=== PATIENT | female | born 1995 | race Caucasian/White ===

== ENCOUNTER 2022-10-16 15:09 | Inpatient (IN) ==
[2022-10-16 15:55] LABS: Appearance Urine Clear (Clear); Bilirubin Urine Negative (Negative); Blood Urine Negative (Negative); Color Urine Yellow; Glucose Urine UA Negative (Negative); Ketones Urine Trace (Negative); Leukocyte Esterase Urine Negative (Negative); Nitrite Urine Negative (Negative); Protein Urine Negative (Negative); Specific Gravity Urine 1.024 (1.000-1.030); Urobilinogen Urine Negative (Negative); pH Urine 5.5 (4.5-7.5)
[2022-10-16 15:58] LABS: Basophils # (auto) 0.05 K/uL (0-0.2); Basophils % (auto) 0.6 %; Eosinophils # (auto) 0.08 K/uL (0-0.50); Eosinophils % (auto) 0.9 %; Hematocrit (blood only) 44.8 % (34.1-44.9); Hemoglobin 15.1 g/dl (12.0-16.0); Immature Granulocytes # (auto) 0.02 K/uL (0.00-0.02); Immature Granulocytes % (auto) 0.2 %; Lymphocytes # (auto) 2.78 K/uL (1.2-3.4); Lymphocytes % (auto) 32.7 %; Mean Corpuscular Hemoglobin 28.1 pg (25.0-34.0); Mean Corpuscular Hgb Conc 33.7 g/dL (32.0-36.0); Mean Corpuscular Volume 83.4 fL (80.0-100.0); Mean Platelet Volume 10.8 fL (9.4-12.3); Monocytes # (auto) 0.55 K/uL (0.24-0.82); Monocytes % (auto) 6.5 %; Neutrophils # (auto) 5.02 K/uL (1.4-6.5); Neutrophils % (auto) 59.1 %; Platelet Count 351 K/uL (130-400); RDW Coefficient of Variation 12.8 % (11.5-14.5); RDW Standard Deviation 38.7 fL (36.4-46.3); Red Blood Count 5.37 M/uL (3.93-5.22)
[2022-10-16 16:19] LABS: Albumin Globulin Ratio 1.3 (0.9-2); Albumin Level 4.4 gm/dl (3.4-5.0); Bilirubin,Total 0.3 mg/dl (0.2-1.0); Calcium 8.9 mg/dl (8.5-10.1); Creatinine Clr Calc Pharmacy 153.5 ml/min; Est GFR (Non-African American) 123.4 ml/min; Globulin 3.4 gm/dl (2.5-4.0); Total Protein 7.8 gm/dl (6.0-8.3)
[2022-10-16 16:21] LABS: Acetaminophen < 3 ug/ml (10-30); Salicylate < 3.0 mg/dl (3.0-30)
--- NOTE | 2022-10-16 16:26 | Emergency Department Note ---
Impression & Plan Suicidal ideation, Anxiety and depression ED Provider Note NAME: JHONATAN LANCE AGE: 27 SEX: F ARRIVES VIA: Walk-In INFORMANT: Patient ED PROVIDER(S): Jefferson Finch MD CHIEF COMPLAINT: Suicidal ideation. PLAN: Disposition: Inpatient psychiatric treatment, [address] [place] [address] MEDICAL DECISION MAKING: The patient is a pleasant 27-year-old woman with a past medical history of autism spectrum disorder, anxiety/depression who presents to the emergency department via walk-in for evaluation of suicidal ideation in the setting of having recent break-up with her boyfriend who she lives with and there is still somewhat in the same home intermittently. She reports that she does not feel safe at home at this time as she feels her symptoms are worse and she may act ou t on her suicidal ideation. She denies auditory hallucinations. She does feel hopeless at times. She denies any recent attempts to kill her self but did cut herself superficially a week or so ago on the left forearm which had left no ashley. She denies any recent fevers, chills, cough congestion, GI or symptoms. She is interested in inpatient psychiatric treatment. Of note, the patient did arrive to emergency department during time of high volume, acuity and prolonged emergency department waiting times. Critical pathways initiated from triage. On my evaluation the patient alcoholic appearing but no acute distress, afebrile stable vital signs. She endorses suicidal ideation per HPI. WBC, H/H and platelets within normal limits. Chemistry without metabolic acidosis. Electrolytes and LFTs unremarkable. UA without evidence of infection. Drug screen is positive for marijuana and otherwise unremarkable. COVID-19 RNA, JANN test was negative. Patient medically cleared. Referral made to [facility] and patient was accepted under 201 for inpatient psychiatric treatment. Triage Nursing notes reviewed and agree them. Prior medical records reviewed Vital Signs: reviewed Differential diagnosis: Mood disorder, infection, hypoglycemia, electrolyte abnormalities, cardiac sources, intracerebral event, toxicologic, trauma, neurologic, as well as other pathologies. ER treatment provided: See below. Laboratory studies: See below HPI: The patient is a pleasant 27-year-old woman with a past medical history of autism spectrum disorder, anxiety/depression who presents to the emergency department via walk-in for evaluation of suicidal ideation in the setting of having recent break-up with her boyfriend who she lives with and there is still somewhat in the same home intermittently. She reports that she does not feel safe at home at this time as she feels her symptoms are worse and she may act out on her suicidal ideation. She denies auditory hallucinations. She does feel hopeless at times. She denies any recent attempts to kill her self but did cut herself superficially a week or so ago on the left forearm which had left no ashley. She denies any recent fevers, chills, cough congestion, GI or symptoms. She is interested in inpatient psychiatric treatment. ROS: See above HPI for pertinent positives & negatives. A total of 10 systems reviewed and were otherwise negative. VITALS:See Below PHYSICAL EXAMINATION: GENERAL: Awake, alert, Melancholy-appearing, in no distress HENT: Normocephalic, atraumatic. Oropharynx unremarkable. EYES: Normal conjunctiva. Sclera non-icteric. NECK: Supple. No nuchal rigidity. FROM. No JVD. RESPIRATORY: Clear to auscultation. CARDIAC: Regular rate, normal rhythm. Extremities warm and well perfused. Pulses equal. ABDOMEN: Soft, non-distended. No tenderness to palpation. No rebound or guarding. No masses. RECTAL: Deferred. MUSCULOSKELETAL: Chest examination reveals no tenderness. The back is symmetr ical on inspection without obvious abnormality. There is no CVA tenderness to palpation. No joint edema. LOWER EXTREMITIES: Calves are equal size bilaterally and non-tender. No edema. No discoloration. NEURO: Normal sensorium. No sensory or motor deficits noted. SKIN: No rash or jaundice noted. PSYCH: Endorses depression, hopelessness, suicidal ideation without plan. Denies auditory hallucinations. Jefferson Finch MD Past Med/Surg History Medical History Bipolar disorder Depression Obesity Urge incontinence related to IUD - resolved when removed Surgical History History of ankle surgery x 2, January-Apr 2021 Family History Aunt Breast cancer Other Depression Social History Smoking Status: Never smoker Tobacco Type: Cigarettes Age Started Using Tobacco: 21; Age Quit Using Tobacco: 25; Cigarettes Per Day: 1-2; Second Hand Exposure: No; Hx Alcohol Use: Yes Hx Substance Use: No Preferred Language: Cypriot Communication Ability: Effective Visual Impairment: No Limitations Hearing Ability: Normal Digital Engineer Required: No Beliefs That Will Affect Care: None marital status: Single Current Living Situation: Significant Other current occupational status: employed current occupation: [employer] Feels Safe at Home: Yes and Hesitant to Answer Childhood Exposure to Second-Hand Smoke: No Diet Comment: regular Dental Care, Regularly: Yes Physical Activity Frequency: Other Seatbelt Use: always Sunscreen Use: Yes Gender Identity: Female Assistive Devices: None Allergies Allergies Allergy/AdvReac Type Severity Reaction Status Date / Time No Known Allergies Allergy Unverified 08/03/22 09:31 Home Meds Previous Rx's Medication Instructions Recorded aripiprazole 10 mg tablet (Abilify) 10 mg PO DAILY #90 tabs 08/05/22 citalopram 40 mg tablet 40 mg PO DAILY #30 tabs 08/06/22 cetirizine 10 mg capsule (Zyrtec) 10 mg PO DAILY PRN allergy 08/10/22 symptoms #30 caps Xulane 150 mcg-35 mcg/24 hr 1 patch transdermal Q7D #3 ea 09/10/22 transdermal patch (norelgestromin-ethin.estradiol) medroxyprogesterone 10 mg tablet 10 mg PO DAILY #10 tabs 10/08/22 (Provera) Results & Data (ED) Vital Signs Vital Signs - 24 hr 10/16/22 15:22 10/16/22 17:51 Temperature 36.4 C L Temperature Source Temporal Artery Scan Pulse Rate 106 H 68 Respiratory Rate 18 18 Respiratory Effort / Characteristics Non-Labored Spontaneous Respiratory Depth Normal Respiratory Pattern Regular Blood Pressure 147/85 H 145/88 H Blood Pressure Mean 105 Blood Pressure Position Sitting Pulse Oximetry 98 98 Oxygen Delivery Method Room Air Room Air Sepsis Recent Fever Within 48 Hours No Sepsis New/Unexplained Change in Mental Status No Sepsis Action Taken by Nursing No Action Required Laboratory Data Attestation: I reviewed the patient's lab results. 10/16/22 15:40 10/16/22 15:40 Lab Results 10/16/22 10/16/22 10/16/22 Range/Units 15:31 15:31 15:31 WBC (4.8-10.8) K/ul RBC (3.93-5.22) M/uL Hgb (12.0-16.0) g/dl Hct (34.1-44.9) % MCV (80.0-100.0) fL MCH (25.0-34.0) pg MCHC (32.0-36.0) g/dL RDW Std Deviation (36.4-46.3) fL RDW Coeff of Amari (11.5-14.5) % Plt Count (130-400) K/uL MPV (9.4-12.3) fL Immature Gran % (Auto) % Neut % (Auto) % Lymph % (Auto) % [place] % (Auto) % Eos % (Auto) % Baso % (Auto) % Neut # (Auto) (1.4-6.5) K/uL Lymph # (Auto) (1.2-3.4) K/uL [place] # (Auto) (0.24-0.82) K/uL Eos # (Auto) (0-0.50) K/uL Baso # (Auto) (0-0.2) K/uL Immature Gran # (Auto) (0.00-0.02) K/uL Sodium (136-145) mmol/L Potassium (3.5-5.1) mmol/L Chloride (98-107) mmol/L Carbon Dioxide (21-32) mmol/L Anion Gap (3-11) BUN (6-23) mg/dl Creatinine (0.6-1.2) mg/dl Est Cr Clr Drug Dosing ml/min Est GFR ( Amer) ml/min Est GFR (Non-Af Amer) ml/min BUN/Creatinine Ratio (10-20) Glucose (70-99(Fasting)) mg/dl Calcium (8.5-10.1) mg/dl Total Bilirubin (0.2-1.0) mg/dl AST (13-39) U/L ALT (7-52) U/L Alkaline Phosphatase (34-104) U/L Total Protein (6.0-8.3) gm/dl Albumin (3.4-5.0) gm/dl Globulin (2.5-4.0) gm/dl Albumin/Globulin Ratio (0.9-2) TSH (0.300-4.500) uIu/ml HCG, Qual (Negative) Urine Color Yellow Urine Appearance Clear (Clear) Urine pH 5.5 (4.5-7.5) Ur Specific [place] 1.024 (1.000-1.030) Urine Protein Negative (Negative) Urine Glucose (UA) Negative (Negative) Urine Ketones Trace H (Negative) Urine Blood Negative (Negative) Urine Nitrite Negative (Negative) Urine Bilirubin Negative (Negative) Urine Urobilinogen Negative (Negative) Ur Leukocyte Esterase Negative (Negative) Salicylates (3.0-30) mg/dl Urine Opiates Screen Neg (Neg) Ur Methadone, Qual Neg (Neg) Acetaminophen (10-30) ug/ml Urine Barbiturates Neg (Neg) Ur Phencyclidine (PCP) Neg (Neg) U Amphetamin/Meth Scrn Neg (Neg) MDMA (Ecstasy) Screen Neg (Neg) U Benzodiazepines Scrn Neg (Neg) Ur Cocaine Metabolite Neg (Neg) U Marijuana (THC) Screen Pos H (Neg) Ethyl Alcohol mg/dL (<10.0) mg/dl SARS-CoV-2, RNA, NAAT NEGATIVE (NEGATIVE) 10/16/22 10/16/22 10/16/22 Range/Units 15:40 15:40 15:40 WBC 8.50 (4.8-10.8) K/ul RBC 5.37 H (3.93-5.22) M/uL Hgb 15.1 (12.0-16.0) g/dl Hct 44.8 (34.1-44.9) % MCV 83.4 (80.0-100.0) fL MCH 28.1 (25.0-34.0) pg MCHC 33.7 (32.0-36.0) g/dL RDW Std Deviation 38.7 (36.4-46.3) fL RDW Coeff of Amari 12.8 (11.5-14.5) % Plt Count 351 (130-400) K/uL MPV 10.8 (9.4-12.3) fL Immature Gran % (Auto) 0.2 % Neut % (Auto) 59.1 % Lymph % (Auto) 32.7 % [place] % (Auto) 6.5 % Eos % (Auto) 0.9 % Baso % (Auto) 0.6 % Neut # (Auto) 5.02 (1.4-6.5) K/uL Lymph # (Auto) 2.78 (1.2-3.4) K/uL [place] # (Auto) 0.55 (0.24-0.82) K/uL Eos # (Auto) 0.08 (0-0.50) K/uL Baso # (Auto) 0.05 (0-0.2) K/uL Immature Gran # (Auto) 0.02 (0.00-0.02) K/uL Sodium 137 (136-145) mmol/L Potassium 4.0 (3.5-5.1) mmol/L Chloride 103 (98-107) mmol/L Carbon Dioxide 27 (21-32) mmol/L Anion Gap 7 (3-11) BUN 13 (6-23) mg/dl Creatinine 0.65 (0.6-1.2) mg/dl Est Cr Clr Drug Dosing 153.5 ml/min Est GFR ( Amer) 143.0 ml/min Est GFR (Non-Af Amer) 123.4 ml/min BUN/Creatinine Ratio 20.0 (10-20) Glucose 96 (70-99(Fasting)) mg/dl Calcium 8.9 (8.5-10.1) mg/dl Total Bilirubin 0.3 (0.2-1.0) mg/dl AST 13 (13-39) U/L ALT 12 (7-52) U/L Alkaline Phosphatase 72 (34-104) U/L Total Protein 7.8 (6.0-8.3) gm/dl Albumin 4.4 (3.4-5.0) gm/dl Globulin 3.4 (2.5-4.0) gm/dl Albumin/Globulin Ratio 1.3 (0.9-2) TSH 3.422 (0.300-4.500) uIu/ml HCG, Qual (Negative) Urine Color Urine Appearance (Clear) Urine pH (4.5-7.5) Ur Specific [place] (1.000-1.030) Urine Protein (Negative) Urine Glucose (UA) (Negative) Urine Ketones (Negative) Urine Blood (Negative) Urine Nitrite (Negative) Urine Bilirubin (Negative) Urine Urobilinogen (Negative) Ur Leukocyte Esterase (Negative) Salicylates (3.0-30) mg/dl Urine Opiates Screen (Neg) Ur Methadone, Qual (Neg) Acetaminophen (10-30) ug/ml Urine Barbiturates (Neg) Ur Phencyclidine (PCP) (Neg) U Amphetamin/Meth Scrn (Neg) MDMA (Ecstasy) Screen (Neg) U Benzodiazepines Scrn (Neg) Ur Cocaine Metabolite (Neg) U Marijuana (THC) Screen (Neg) Ethyl Alcohol mg/dL (<10.0) mg/dl SARS-CoV-2, RNA, NAAT (NEGATIVE) 10/16/22 10/16/22 10/16/22 Range/Units 15:40 15:40 15:40 WBC (4.8-10.8) K/ul RBC (3.93-5.22) M/uL Hgb (12.0-16.0) g/dl Hct (34.1-44.9) % MCV (80.0-100.0) fL MCH (25.0-34.0) pg MCHC (32.0-36.0) g/dL RDW Std Deviation (36.4-46.3) fL RDW Coeff of Amari (11.5-14.5) % Plt Count (130-400) K/uL MPV (9.4-12.3) fL Immature Gran % (Auto) % Neut % (Auto) % Lymph % (Auto) % [place] % (Auto) % Eos % (Auto) % Baso % (Auto) % Neut # (Auto) (1.4-6.5) K/uL Lymph # (Auto) (1.2-3.4) K/uL [place] # (Auto) (0.24-0.82) K/uL Eos # (Auto) (0-0.50) K/uL Baso # (Auto) (0-0.2) K/uL Immature Gran # (Auto) (0.00-0.02) K/uL Sodium (136-145) mmol/L Potassium (3.5-5.1) mmol/L Chloride (98-107) mmol/L Carbon Dioxide (21-32) mmol/L Anion Gap (3-11) BUN (6-23) mg/dl Creatinine (0.6-1.2) mg/dl Est Cr Clr Drug Dosing ml/min Est GFR ( Amer) ml/min Est GFR (Non-Af Amer) ml/min BUN/Creatinine Ratio (10-20) Glucose (70-99(Fasting)) mg/dl Calcium (8.5-10.1) mg/dl Total Bilirubin (0.2-1.0) mg/dl AST (13-39) U/L ALT (7-52) U/L Alkaline Phosphatase (34-104) U/L Total Protein (6.0-8.3) gm/dl Albumin (3.4-5.0) gm/dl Globulin (2.5-4.0) gm/dl Albumin/Globulin Ratio (0.9-2) TSH (0.300-4.500) uIu/ml HCG, Qual Negative (Negative) Urine Color Urine Appearance (Clear) Urine pH (4.5-7.5) Ur Specific [place] (1.000-1.030) Urine Protein (Negative) Urine Glucose (UA) (Negative) Urine Ketones (Negative) Urine Blood (Negative) Urine Nitrite (Negative) Urine Bilirubin (Negative) Urine Urobilinogen (Negative) Ur Leukocyte Esterase (Negative) Salicylates < 3.0 L (3.0-30) mg/dl Urine Opiates Screen (Neg) Ur Methadone, Qual (Neg) Acetaminophen < 3 L (10-30) ug/ml Urine Barbiturates (Neg) Ur Phencyclidine (PCP) (Neg) U Amphetamin/Meth Scrn (Neg) MDMA (Ecstasy) Screen (Neg) U Benzodiazepines Scrn (Neg) Ur Cocaine Metabolite (Neg) U Marijuana (THC) Screen (Neg) Ethyl Alcohol mg/dL < 10.0 (<10.0) mg/dl SARS-CoV-2, RNA, NAAT (NEGATIVE) Administered Medications Discontinued Medications Aripiprazole (Aripiprazole 10 Mg Tab) 10 mg PO ONE ONE Stop: 10/16/22 21:01 Last Admin: 10/16/22 20:48 Dose: 10 mg Documented By: RDS Discharge Plan Visit Data Chief Complaint: Mental Health Evaluation Stated Complaint: MENTAL HEALTH EVALUATION ED Provider: Jefferson Finch Discharge Problem: Suicidal ideation, Anxiety and depression Patient Disposition: Admitted As Inpatient Discharge Instructions Interventions: ED Discharge Assessment Last Done: 10/16/22 17:51
[2022-10-16 16:36] LABS: Pregnancy Test, Serum Negative (Negative)
[2022-10-16 16:45] LABS: Amphetamines+Metham, Urine Neg (Neg); Barbiturates, Urine Neg (Neg); Benzodiazepine, Urine Neg (Neg); Cocaine, Urine Neg (Neg); MDMA (Ecstacy), Urine Neg (Neg); Methadone, Urine Neg (Neg); Opiate, Urine Neg (Neg); Phencyclidine, Urine Neg (Neg)
[2022-10-16] MEDS ORDERED: MAGNESIUM HYDROXIDE SUSP 30 ML UDC PO PRN (18:01)
[2022-10-16] MEDS ORDERED: ACETAMINOPHEN 325 MG TAB PO PRN (18:01)
[2022-10-16] MEDS ORDERED: SODIUM CHLORIDE 0.65% NA SOLN 45 ML (OCEAN) PRN (18:01)
[2022-10-16] MEDS ORDERED: BISMUTH SUBSALICYLATE LIQD 236 ML PO PRN (18:01)
[2022-10-16] MEDS ORDERED: ALUMINUM/MAGNESIUM SUSP 30 ML UDC PO PRN (18:01)
[2022-10-16] MEDS ORDERED: hydrOXYzine HCl 25 MG TAB PO PRN ×2 (18:01)
[2022-10-16] MEDS ORDERED: ARIPiprazole 10 MG TAB PO ONE (21:00)
--- NOTE | 2022-10-17 08:31 | History & Physical ---
Date of Service October 17, 2022 Impression / Recommendations Impression Vivian is a 27 year old with a history of BPAD type II, MDD, ASD presenting for worsening suicidal ideation with plan of cutting herself after recent PTSD trigger and just started on Provera three days ago for intermittent menstruation. Diagnostically consistent with unspecified depression, most likely major depressive disorder vs PTSD acute exacerbation. Based on her description of mood changes (elevated mood lasting only a few hours and never with lack of sleep) as well as self-harm more consistent with borderline personality disorder/cluster B traits rather than bipolar affective disorder. The patient is deemed unstable and requires psychiatric hospitalization for diagnostic clarification, safety and stabilization, medication management and development of further coping skills. She likes her medications and doesn't want to make any changes. Discussed medication treatment options in detail. Discussed risks, benefits and alternatives. Patient would like to continue with and consented to Celexa for depression, PTSD, anxiety and Abilify for self-harm urges/depression augmentation. Reviewed side effects including but not limited to: GI, SANTOS, sexual side effects, and counseled on black box warning of potential for emergence of or increased SI and need to let staff know should this occur or should they feel unsafe. Also discussed importance of seeking emergency care following discharge if this side effect occurs in the future with Celexa. Reviewed side effects including but not limited to: movement (TD, NMS), cardiac (QTc prolongation), and metabolic (stroke, insulin resistance) and necessity for fasting lipid and glucose labwork and AIMS done with score of 0. (1) Suicidal ideation: (2) Major depressive disorder, recurrent episode with anxious distress: (3) Post traumatic stress disorder (PTSD): (4) Self-harming behavior: Plan 10/17/2022: The patient was admitted to the [facility] ([facility] unit) on q15 min checks (behavioral with suicide precautions) for safety. The patient will participate in group, recreational, and milieu therapies and will be offered additional individual and family sessions as clinically appropriate. -Continue abilify 10mg qd and Celexa 40mg qd -fasting lipid panel and glucose tomorrow morning Inventory Assets Strengths: supportive relationships, willing to get treatment Needs: safety and stabilization, medication adjustment, additional coping skills, increased outpatient services Suicide Risk Level Suicide Risk Level: High-Moderate (q15 min suicide checks) (depression with SI with plan prior to admission but feels safe in the hospital, able to safety contract and agrees to let nursing/staff know should they develop plan, intent or feel unable to remain safe.) Suicide Risk Level Comments: Risk Factors Assessment : Yes Do You Have Access To A Gun?: No (roommate has concealed carry, but always on him) Mental Health Diagnoses: Yes Previous Attempt: Yes Family History of Suicide: Yes (possibly in [facility]) Previous Psychiatric Hospitalization: Yes Protective Factors Assessment Employed: Yes ([employer]) Supportive Family: Yes Good Rapport with Provider: Yes Psychiatric History Identifying Data VIVIAN LANCE is a 27-year-old F who currently lives in [place] with her ex-boyfriend, has a history of BPAD type II, MDD, ASD with learning disabilities, and was admitted on 10/16/22 18:01 on a 201 voluntary commitment for SI with plan of cutting herself to bleed to . Chief Complaint "I'm sorry I know I shouldn't be crying". History of Present Illness Vivian presents for psychiatric admission for worsening depression and SI with plan of cutting herself in the context of multiple psychosocial stressors including seeing her late fiance's brother last week, recent breakup but still living together which has lead to more arguments, not being able to keep her apartment clean and financial strain. Endorses multiple depression and anxiety symptoms including increased sleep. Appetite is stable. She is currently prescribed Celexa 40mg qd (dose increased about 1 year ago) which she finds helpful and then Abilify 10mg was started in 2020 and she feels this "works wonders" and "keeps me out of that bad side of me" from her primary care provider Dr. Méndez. Reviewed and confirmed further symptoms as documented by ED psych CM in note from 10/16/2022: "Patient reports depressive symptoms as crying, self- devaluation, feelings of helpless/hopelessness, loss of daily functioning, lack of motivation, anhedonia, varying appetite, decrease in ADL's and sleep. Patient reports manic symptoms as elevated/expansive mood and racing thoughts. Patient describes mild anxiety on most days with symptoms of chest discomfort, trembling and stuttering when she talks with occasional panic attacks. Patient admits to thoughts of self-harm, but has not cut herself for a couple of weeks. Patient reports she usually uses a razor and began self-harming at age 20. Patient reports trauma of losing a boyfriend "who in bed beside me," parents , hx of homelessness and being bullied in high school. Patient does not use alcohol or tobacco, but is prescribed medical marijuana and smokes a few times a month. Patient lives in a local apartment, formerly living with her former boyfriend who now just comes and goes from the apartment. Patient especially enjoys, but has lost interest in creative activities, listening to music, playing video games and cuddling with her cat." Psychiatric ROS notable for periods of elevated mood that will last "a couple hours" but never longer. No current nor history of symptoms of ramón, psychosis, OCD nor eating disorder. Frequent self-harm. History of PTSD from of her fiancee with ongoing challenges committing to relationships. Past Psychiatric History Current Psychiatric Diagnosis: Bipolar Type 2, MDD, ADHD and Autism (didn't become verbal until age 6 Outpatient Services: none currently, history of [facility] about 2 years ago Previous Psych Admissions: [facility] in 2020 for depression Do You Have Access To A Gun?: No (roommate has concealed carry, but always on him) History of Previous Suicide Attempt: Yes (~5 prior, last attempt was a few weeks ago) Describe Attempts in the Past: via cutting with a razor-never required stitches Past Medication Trials: zoloft-didn't work, can't recall any other trials Past Head Trauma/Neuro History History of Concussion/Seizure: No Allergies Allergy/AdvReac Type Severity Reaction Status Date / Time No Known Allergies Allergy Verified 10/17/22 12:09 Home Medications Medication Instructions Recorded Confirmed Type aripiprazole 10 mg tablet (Abilify) 10 mg PO DAILY #90 tabs 08/05/22 10/16/22 Rx citalopram 40 mg tablet 40 mg PO DAILY #30 tabs 08/06/22 10/16/22 Rx cetirizine 10 mg capsule (Zyrtec) 10 mg PO DAILY PRN allergy 08/10/22 10/16/22 Rx symptoms #30 caps Xulane 150 mcg-35 mcg/24 hr 1 patch transdermal Q7D #3 ea 09/10/22 10/16/22 Rx transdermal patch (norelgestromin-ethin.estradiol) medroxyprogesterone 10 mg tablet 10 mg PO DAILY #10 tabs 10/08/22 10/16/22 Rx (Provera) Family History Family History of: Depression (mom), Other-List under Comment (ASD in mom) and Bipolar (dad) Alcohol History Hx of Alcohol Use Over the Past 12 Months: No AUDIT Total Score: 0 Smoking Use Have You Smoked or Used Tobacco Products in the Last 30 Days: No Smoking Status: Never smoker Substance History Hx of Prescription Med Misuse Over the Past 12 Months: No Hx of Over the Counter Med Misuse Over the Past 12 Months: No Hx of Inhalent Misuse Over the Past 12 Months: No Hx of Organic Substance Use Over the Past 12 Months: Yes (Prescribed medical marijuana) Hx of Illegal Substances/Street Drug Use Over Past 12 Months: No Problems as a Result of Past Substance Use: None Identified Uses medical marijuana via vape pen about once a week or once a month which she finds helps her anxiety. Doesn't like the aftertaste but no other negative effects. Personal History Living Arrangements: Apartment Childhood: Parents . Has sister. She doesn't talk to her Dad or sister but has a good relationship with her mom. Highest Grade Completed: G.E.D. Employment Status: Programs Assistant Employed ([employer]) Marital Status: Single Beliefs That Will Affect Care: None Current Legal Problems: No Hx Legal Problems: No Hx Traumatic Life Events: Yes (fiancee overdosed or by suicide 6 years ago) Patient History Medical History Bipolar disorder Depression Obesity Urge incontinence related to IUD - resolved when removed Surgical History History of ankle surgery x 2, January-Apr 2021 Family History Aunt Breast cancer Other Depression Social History Smoking Status: Never smoker Tobacco Type: Cigarettes Age Started Using Tobacco: 21; Age Quit Using Tobacco: 25; Cigarettes Per Day: 1-2; Second Hand Exposure: No; Hx Alcohol Use: Yes Hx Substance Use: No Preferred Language: Croatian Communication Ability: Effective Visual Impairment: No Limitations Hearing Ability: Normal Head Baker Required: No Beliefs That Will Affect Care: None marital status: Single Current Living Situation: Significant Other current occupational status: employed current occupation: [employer] Feels Safe at Home: Yes and Hesitant to Answer Childhood Exposure to Second-Hand Smoke: No Diet Comment: regular Dental Care, Regularly: Yes Physical Activity Frequency: Other Seatbelt Use: always Sunscreen Use: Yes Gender Identity: Female Assistive Devices: None Review of Systems Review of Systems: All systems reviewed & are unremarkable except as noted in HPI & below Physical Exam Psychiatric: Orientation: alert and oriented x 3 Apperance: appropriately dressed and + disheveled (slightly malodorous) Eye Contact: + fair eye contact Motor Behavior: no abnormal motor movements Speech: normal rate/rhythm/volume of speech Affect: + depressed affect, + anxious affect and + tearful affect Mood: + depressed mood and + anxious mood Thought P rocess: goal directed thought process and + concrete thought process Thought Content: reality based without delusions Suicidal Thoughts: denies suicidal plan (none for here in the hospital) and denies suicidal intent; + reports suicidal thoughts (intermittent SI) Homicidal Thoughts: denies homicidal thoughts Hallucinations: no auditory hallucinations and no visual hallucinations Cognition: recent memory grossly intact, remote memory grossly intact, attention grossly intact and language grossly intact Estimated Intelligence: consistent with education level Insight: + limited insight Judgement: + limited judgement Vital Signs (Past 24 Hours): Last Vital Signs Temp 36.5 C 10/17/22 06:42 Pulse 94 H 10/17/22 06:43 Resp 16 10/17/22 06:42 BP 115/82 10/17/22 06:43 Pulse Ox 95 10/16/22 18:07 O2 Del Method 10/16/22 18:07 Exam Statement: A physical exam was performed in the ED by Dr. Finch for the purposes of medical clearance. I accept that physical as correct and adequate for the purposes of the inpatient physical exam. Results & Data ([facility]) Laboratory Results Laboratory Results - last 24 hr 10/16/22 10/16/22 10/16/22 15:31 15:31 15:31 WBC RBC Hgb Hct MCV MCH MCHC RDW Std Deviation RDW Coeff of Amari Plt Count MPV Immature Gran % (Auto) Neut % (Auto) Lymph % (Auto) [place] % (Auto) Eos % (Auto) Baso % (Auto) Neut # (Auto) Lymph # (Auto) [place] # (Auto) Eos # (Auto) Baso # (Auto) Immature Gran # (Auto) Sodium Potassium Chloride Carbon Dioxide Anion Gap BUN Creatinine Est Cr Clr Drug Dosing Est GFR ( Amer) Est GFR (Non-Af Amer) BUN/Creatinine Ratio Glucose Calcium Total Bilirubin AST ALT Alkaline Phosphatase Total Protein Albumin Globulin Albumin/Globulin Ratio TSH HCG, Qual Urine Color Yellow Urine Appearance Clear Urine pH 5.5 Ur Specific [place] 1.024 Urine Protein Negative Urine Glucose (UA) Negative Urine Ketones Trace H Urine Blood Negative Urine Nitrite Negative Urine Bilirubin Negative Urine Urobilinogen Negative Ur Leukocyte Esterase Negative Salicylates Urine Opiates Screen Neg Ur Methadone, Qual Neg Acetaminophen Urine Barbiturates Neg Ur Phencyclidine (PCP) Neg U Amphetamin/Meth Scrn Neg MDMA (Ecstasy) Screen Neg U Benzodiazepines Scrn Neg Ur Cocaine Metabolite Neg U Marijuana (THC) Screen Pos H U Marijuana THC Carboxy Drug Screen Comment Ethyl Alcohol mg/dL SARS-CoV-2, RNA, NAAT NEGATIVE 10/16/22 10/16/22 10/16/22 15:31 15:40 15:40 WBC 8.50 RBC 5.37 H Hgb 15.1 Hct 44.8 MCV 83.4 MCH 28.1 MCHC 33.7 RDW Std Deviation 38.7 RDW Coeff of Amari 12.8 Plt Count 351 MPV 10.8 Immature Gran % (Auto) 0.2 Neut % (Auto) 59.1 Lymph % (Auto) 32.7 [place] % (Auto) 6.5 Eos % (Auto) 0.9 Baso % (Auto) 0.6 Neut # (Auto) 5.02 Lymph # (Auto) 2.78 [place] # (Auto) 0.55 Eos # (Auto) 0.08 Baso # (Auto) 0.05 Immature Gran # (Auto) 0.02 Sodium 137 Potassium 4.0 Chloride 103 Carbon Dioxide 27 Anion Gap 7 BUN 13 Creatinine 0.65 Est Cr Clr Drug Dosing 153.5 Est GFR ( Amer) 143.0 Est GFR (Non-Af Amer) 123.4 BUN/Creatinine Ratio 20.0 Glucose 96 Calcium 8.9 Total Bilirubin 0.3 AST 13 ALT 12 Alkaline Phosphatase 72 Total Protein 7.8 Albumin 4.4 Globulin 3.4 Albumin/Globulin Ratio 1.3 TSH HCG, Qual Urine Color Urine Appearance Urine pH Ur Specific [place] Urine Protein Urine Glucose (UA) Urine Ketones Urine Blood Urine Nitrite Urine Bilirubin Urine Urobilinogen Ur Leukocyte Esterase Salicylates Urine Opiates Screen Ur Methadone, Qual Acetaminophen Urine Barbiturates Ur Phencyclidine (PCP) U Amphetamin/Meth Scrn MDMA (Ecstasy) Screen U Benzodiazepines Scrn Ur Cocaine Metabolite U Marijuana (THC) Screen U Marijuana THC Carboxy Pending Drug Screen Comment Pending Ethyl Alcohol mg/dL SARS-CoV-2, RNA, NAAT 10/16/22 10/16/22 10/16/22 15:40 15:40 15:40 WBC RBC Hgb Hct MCV MCH MCHC RDW Std Deviation RDW Coeff of Amari Plt Count MPV Immature Gran % (Auto) Neut % (Auto) Lymph % (Auto) [place] % (Auto) Eos % (Auto) Baso % (Auto) Neut # (Auto) Lymph # (Auto) [place] # (Auto) Eos # (Auto) Baso # (Auto) Immature Gran # (Auto) Sodium Potassium Chloride Carbon Dioxide Anion Gap BUN Creatinine Est Cr Clr Drug Dosing Est GFR ( Amer) Est GFR (Non-Af Amer) BUN/Creatinine Ratio Glucose Calcium Total Bilirubin AST ALT Alkaline Phosphatase Total Protein Albumin Globulin Albumin/Globulin Ratio TSH 3.422 HCG, Qual Urine Color Urine Appearance Urine pH Ur Specific [place] Urine Protein Urine Glucose (UA) Urine Ketones Urine Blood Urine Nitrite Urine Bilirubin Urine Urobilinogen Ur Leukocyte Esterase Salicylates < 3.0 L Urine Opiates Screen Ur Methadone, Qual Acetaminophen < 3 L Urine Barbiturates Ur Phencyclidine (PCP) U Amphetamin/Meth Scrn MDMA (Ecstasy) Screen U Benzodiazepines Scrn Ur Cocaine Metabolite U Marijuana (THC) Screen U Marijuana THC Carboxy Drug Screen Comment Ethyl Alcohol mg/dL < 10.0 SARS-CoV-2, RNA, NAAT 10/16/22 15:40 WBC RBC Hgb Hct MCV MCH MCHC RDW Std Deviation RDW Coeff of Amari Plt Count MPV Immature Gran % (Auto) Neut % (Auto) Lymph % (Auto) [place] % (Auto) Eos % (Auto) Baso % (Auto) Neut # (Auto) Lymph # (Auto) [place] # (Auto) Eos # (Auto) Baso # (Auto) Immature Gran # (Auto) Sodium Potassium Chloride Carbon Dioxide Anion Gap BUN Creatinine Est Cr Clr Drug Dosing Est GFR ( Amer) Est GFR (Non-Af Amer) BUN/Creatinine Ratio Glucose Calcium Total Bilirubin AST ALT Alkaline Phosphatase Total Protein Albumin Globulin Albumin/Globulin Ratio TSH HCG, Qual Negative Urine Color Urine Appearance Urine pH Ur Specific [place] Urine Protein Urine Glucose (UA) Urine Ketones Urine Blood Urine Nitrite Urine Bilirubin Urine Urobilinogen Ur Leukocyte Esterase Salicylates Urine Opiates Screen Ur Methadone, Qual Acetaminophen Urine Barbiturates Ur Phencyclidine (PCP) U Amphetamin/Meth Scrn MDMA (Ecstasy) Screen U Benzodiazepines Scrn Ur Cocaine Metabolite U Marijuana (THC) Screen U Marijuana THC Carboxy Drug Screen Comment Ethyl Alcohol mg/dL SARS-CoV-2, RNA, NAAT Current Inpatient Medications Current Inpatient Medications: Current Inpatient Medications Acetaminophen (Acetaminophen 325 Mg Tab) 650 mg PO Q4H PRN PRN Reason: Headache or Minor Fever Stop: 11/15/22 18:00 Al Hydrox/Mg Hydrox/Simethicone (Aluminum/Magnesium Susp 30 Ml Udc) 30 ml PO Q4H PRN PRN Reason: GI Upset Stop: 11/15/22 18:00 Bismuth Subsalicylate (Bismuth Subsalicylate Liqd 236 Ml) 15 ml PO PRN PRN PRN Reason: Loose Stool Stop: 11/15/22 18:00 Hydroxyzine HCl (Hydroxyzine Hcl 25 Mg Tab) 50 mg PO HSZ PRN PRN Reason: Insomnia Stop: 11/15/22 18:00 Hydroxyzine HCl (Hydroxyzine Hcl 25 Mg Tab) 25 mg PO Q4H PRN PRN Reason: Anxiety Stop: 11/15/22 18:00 Magnesium Hydroxide (Magnesium Hydroxide Susp 30 Ml Udc) 30 ml PO DAILY PRN PRN Reason: Constipation Stop: 11/15/22 18:00 Sodium Chloride (Sodium Chloride 0.65% Na Soln 45 Ml (Centre)) 1 - 2 sprays NA PRN PRN PRN Reason: Nasal Dryness/Congestion Stop: 11/15/22 18:00
[2022-10-17] MEDS ORDERED: CETIRIZINE HCL 10 MG TABLET PO PRN (12:30)
[2022-10-17] MEDS: CITALOPRAM 40 MG TAB PO SCH (13:06)
[2022-10-17] MEDS: medroxyPROGESTERone ACETATE 10 MG TAB PO SCH (13:06)
[2022-10-18] MEDS: medroxyPROGESTERone ACETATE 10 MG TAB PO SCH (08:25)
[2022-10-18] MEDS: CITALOPRAM 40 MG TAB PO SCH (08:25)
[2022-10-18 08:54] LABS: Chol HDL Ratio 5.1 (0-5)
[2022-10-18] MEDS ORDERED: ARIPiprazole 10 MG TAB PO SCH (09:00)
--- NOTE | 2022-10-18 14:24 | Discharge Summary ---
Date of Service October 18, 2022 History of Present Illness Vivian presents for psychiatric admission for worsening depression and SI with plan of cutting herself in the context of multiple psychosocial stressors including seeing her late fiance's brother last week, recent breakup but still living together which has lead to more arguments, not being able to keep her apartment clean and financial strain. Endorses multiple depression and anxiety symptoms including increased sleep. Appetite is stable. She is currently prescribed Celexa 40mg qd (dose increased about 1 year ago) which she finds helpful and then Abilify 10mg was started in 2020 and she feels this "works wonders" and "keeps me out of that bad side of me" from her primary care provider Dr. Méndez. Reviewed and confirmed further symptoms as documented by ED psych CM in note from 10/16/2022: "Patient reports depressive symptoms as crying, self- devaluation, feelings of helpless/hopelessness, loss of daily functioning, lack of motivation, anhedonia, varying appetite, decrease in ADL's and sleep. Patient reports manic symptoms as elevated/expansive mood and racing thoughts. Patient describes mild anxiety on most days with symptoms of chest discomfort, trembling and stuttering when she talks with occasional panic attacks. Patient admits to thoughts of self-harm, but has not cut herself for a couple of weeks. Patient reports she usually uses a razor and began self-harming at age 20. Patient reports trauma of losing a boyfriend "who in bed beside me," parents , hx of homelessness and being bullied in high school. Patient does not use alcohol or tobacco, but is prescribed medical marijuana and smokes a few times a month. Patient lives in a local apartment, formerly living with her former boyfriend who now just comes and goes from the apartment. Patient especially enjoys, but has lost interest in creative activities, listening to music, playing video games and cuddling with her cat." Psychiatric ROS notable for periods of elevated mood that will last "a couple hours" but never longer. No current nor history of symptoms of ramón, psychosis, OCD nor eating disorder. Frequent self-harm. History of PTSD from of her fiancee with ongoing challenges committing to relationships. Physical Exam Vital Signs (Past 24 Hours) Last Vital Signs Temp 36.8 C 10/18/22 06:41 Pulse 91 H 10/18/22 06:41 Resp 16 10/18/22 06:41 BP 132/84 10/18/22 06:41 Pulse Ox 95 10/16/22 18:07 O2 Del Method 10/16/22 18:07 See admission H&P and DOD summary. Principal Diagnosis Major Depressive Disorder Psychiatric Data See daily stay summary. In short, patient was engaged with the social/therapeutic milieu of the unit, safety was maintained and the patient was cooperative with care though she did sign a 72 hour notice on her first day of admission. She showed fairly rapid mood improvement over about 24 hours, seemingly after finding a new apartment she could move into next week which also lead to resolution of her SI. She had no episodes of self-harm. She did not desire any medication changes and was therefore continued on her prior to admission medications of citalopram 40mg qd and Abilify 10mg qd for depression augmentation with addition of Vistaril 25mg daily prn for anxiety/insomnia and they tolerated this well. Baseline labs of fasting glucose, fasting lipid profile, and weight were preformed and notable for elevated BMI and elevated triglycerides. She agrees to discuss her elevated triglycerides with her primary care physician. If triglycerides remain elevated despite diet/lifestyle or other treatment option additions then would consider tapering Abilify to 5mg qd in the future. Recommend repeat fasting glucose, HbA1c and fasting lipid profile every 12 weeks and then annually. If symptoms arise recommend checking BP, EKG, prolactin level as clinically indicated or relevant. She does not feel that Provera contributed to any mood changes. Agrees to contact her [employer] P[employer]ER or primary care provider if mood changes occur while taking Provera or after switching to her new control patch. A support session was held and safety plan was completed prior to discharge. She declined referral for outpatient psychiatry but was interested in outpatient therapy which is now scheduled. She participated in safety planning and in discussions about ways to seek support and recognizing warning signs and utilizing coping skills. Reviewed mobile apps that could be used for additional ways to have their safety plan and contacts easily available should thoughts of SI re-emerge in the future. Review ed importance of seeking emergency care should SI intensify, worsen or should they feel unsafe in the future which they agree to do. On the day of discharge she stated her mood was "better, I feel understood" and "good" and remained future-oriented including cleaning, packing to move, returning to work, moving in with a new roommate next week, possible future vacation, seeing her cat and engaging in aftercare appointments for therapy and with Dr. Méndez. Day of Discharge Assessment Today the patient voices readiness for discharge. They note improvement in mood and anxiety. They deny thoughts of harm to self or others. Thoughts are organized and they are clinically improved from admission. There is no evidence of psychosis. They improved in the hospital with support and medication adjustments. They agree to take medications as prescribed and keep follow-up appointments. At the time of the discharge they are deemed to be stable and ap propriate for outpatient level of care. They are not deemed to be at imminent risk of harm to self or others. They are aware of emergency and crisis services. Knows to call 911 or go to nearest emergency care center if in a crisis which cannot be handled as an outpatient. Transition of Care Transition Of Care Record: was reviewed with the patient Advance Directives Advance Directives Information Provided: Yes Advance Directives: No Mental Health Advance Directive: No Advance Directives on File: No Living Will: No Power of Barge Pilot: No Advance Directives Reason:: Declines as Mental Health Visit. Suicide Risk Level Suicide Risk Level Comments: Acute risk is low given improvement in mood and denial of SI, lack of access to lethal means, improvement in sleep, hopefulness. Chronic risk is moderate given multiple non-modifiable risk factors: psychiatric co-morbid diagnoses, periods of impulsivity, prior attempt, hx self-harm, emotional reactivity, prior psychiatric hospitalizations, limited social support, possible cluster B personality disorder, family history of by suicide but also with protective factors including employed, sense of responsibility to family and social supports, outpatient care in place, positive coping skills, capacity to establish therapeutic alliance, willingness to engage with treatment. Counseled on ways to reduce acute and chronic risk including engaging with outpatient providers, using safety plan if needed, utilizing supports, taking medication, and using coping skills. Modifiable risk factors of SI and depression were addressed during hospitalization through development of new coping skills, support meeting, safety planning, and finding a new place to live with a more supportive roommate. Risk Factors Assessment : Yes Do You Have Access To A Gun?: No (roommate has concealed carry, but always on him) Mental Health Diagnoses: Yes Previous Attempt: Yes Family History of Suicide: Yes (possibly in fiancee) Previous Psychiatric Hospitalization: Yes Hopelessness: No Protective Factors Assessment Employed: Yes ([employer]) Supportive Family: Yes Good Rapport with Provider: Yes Discharge Data Lab Results 10/16/22 10/16/22 10/16/22 15:31 15:31 15:31 WBC RBC Hgb Hct MCV MCH MCHC RDW Std Deviation RDW Coeff of Amari Plt Count MPV Immature Gran % (Auto) Neut % (Auto) Lymph % (Auto) [place] % (Auto) Eos % (Auto) Baso % (Auto) Neut # (Auto) Lymph # (Auto) [place] # (Auto) Eos # (Auto) Baso # (Auto) Immature Gran # (Auto) Sodium Potassium Chloride Carbon Dioxide Anion Gap BUN Creatinine Est Cr Clr Drug Dosing Est GFR ( Amer) Est GFR (Non-Af Amer) BUN/Creatinine Ratio Glucose Fasting Glucose Calcium Total Bilirubin AST ALT Alkaline Phosphatase Total Protein Albumin Globulin Albumin/Globulin Ratio Triglycerides Cholesterol LDL Cholesterol, Calc VLDL Cholesterol, Calc HDL Cholesterol Cholesterol/HDL Ratio TSH HCG, Qual Urine Color Yellow Urine Appearance Clear Urine pH 5.5 Ur Specific [place] 1.024 Urine Protein Negative Urine Glucose (UA) Negative Urine Ketones Trace H Urine Blood Negative Urine Nitrite Negative Urine Bilirubin Negative Urine Urobilinogen Negative Ur Leukocyte Esterase Negative Salicylates Urine Opiates Screen Neg Ur Methadone, Qual Neg Acetaminophen Urine Barbiturates Neg Ur Phencyclidine (PCP) Neg U Amphetamin/Meth Scrn Neg MDMA (Ecstasy) Screen Neg U Benzodiazepines Scrn Neg Ur Cocaine Metabolite Neg U Marijuana (THC) Screen Pos H Ethyl Alcohol mg/dL SARS-CoV-2, RNA, NAAT NEGATIVE 10/16/22 10/16/22 10/16/22 15:40 15:40 15:40 WBC 8.50 RBC 5.37 H Hgb 15.1 Hct 44.8 MCV 83.4 MCH 28.1 MCHC 33.7 RDW Std Deviation 38.7 RDW Coeff of Amari 12.8 Plt Count 351 MPV 10.8 Immature Gran % (Auto) 0.2 Neut % (Auto) 59.1 Lymph % (Auto) 32.7 [place] % (Auto) 6.5 Eos % (Auto) 0.9 Baso % (Auto) 0.6 Neut # (Auto) 5.02 Lymph # (Auto) 2.78 [place] # (Auto) 0.55 Eos # (Auto) 0.08 Baso # (Auto) 0.05 Immature Gran # (Auto) 0.02 Sodium 137 Potassium 4.0 Chloride 103 Carbon Dioxide 27 Anion Gap 7 BUN 13 Creatinine 0.65 Est Cr Clr Drug Dosing 153.5 Est GFR ( Amer) 143.0 Est GFR (Non-Af Amer) 123.4 BUN/Creatinine Ratio 20.0 Glucose 96 Fasting Glucose Calcium 8.9 Total Bilirubin 0.3 AST 13 ALT 12 Alkaline Phosphatase 72 Total Protein 7.8 Albumin 4.4 Globulin 3.4 Albumin/Globulin Ratio 1.3 Triglycerides Cholesterol LDL Cholesterol, Calc VLDL Cholesterol, Calc HDL Cholesterol Cholesterol/HDL Ratio TSH 3.422 HCG, Qual Urine Color Urine Appearance Urine pH Ur Specific [place] Urine Protein Urine Glucose (UA) Urine Ketones Urine Blood Urine Nitrite Urine Bilirubin Urine Urobilinogen Ur Leukocyte Esterase Salicylates Urine Opiates Screen Ur Methadone, Qual Acetaminophen Urine Barbiturates Ur Phencyclidine (PCP) U Amphetamin/Meth Scrn MDMA (Ecstasy) Screen U Benzodiazepines Scrn Ur Cocaine Metabolite U Marijuana (THC) Screen Ethyl Alcohol mg/dL SARS-CoV-2, RNA, NAAT 10/16/22 10/16/22 10/16/22 15:40 15:40 15:40 WBC RBC Hgb Hct MCV MCH MCHC RDW Std Deviation RDW Coeff of Amari Plt Count MPV Immature Gran % (Auto) Neut % (Auto) Lymph % (Auto) [place] % (Auto) Eos % (Auto) Baso % (Auto) Neut # (Auto) Lymph # (Auto) [place] # (Auto) Eos # (Auto) Baso # (Auto) Immature Gran # (Auto) Sodium Potassium Chloride Carbon Dioxide Anion Gap BUN Creatinine Est Cr Clr Drug Dosing Est GFR ( Amer) Est GFR (Non-Af Amer) BUN/Creatinine Ratio Glucose Fasting Glucose Calcium Total Bilirubin AST ALT Alkaline Phosphatase Total Protein Albumin Globulin Albumin/Globulin Ratio Triglycerides Cholesterol LDL Cholesterol, Calc VLDL Cholesterol, Calc HDL Cholesterol Cholesterol/HDL Ratio TSH HCG, Qual Negative Urine Color Urine Appearance Urine pH Ur Specific [place] Urine Protein Urine Glucose (UA) Urine Ketones Urine Blood Urine Nitrite Urine Bilirubin Urine Urobilinogen Ur Leukocyte Esterase Salicylates < 3.0 L Urine Opiates Screen Ur Methadone, Qual Acetaminophen < 3 L Urine Barbiturates Ur Phencyclidine (PCP) U Amphetamin/Meth Scrn MDMA (Ecstasy) Screen U Benzodiazepines Scrn Ur Cocaine Metabolite U Marijuana (THC) Screen Ethyl Alcohol mg/dL < 10.0 SARS-CoV-2, RNA, NAAT 10/18/22 08:17 WBC RBC Hgb Hct MCV MCH MCHC RDW Std Deviation RDW Coeff of Amari Plt Count MPV Immature Gran % (Auto) Neut % (Auto) Lymph % (Auto) [place] % (Auto) Eos % (Auto) Baso % (Auto) Neut # (Auto) Lymph # (Auto) [place] # (Auto) Eos # (Auto) Baso # (Auto) Immature Gran # (Auto) Sodium Potassium Chloride Carbon Dioxide Anion Gap BUN Creatinine Est Cr Clr Drug Dosing Est GFR ( Amer) Est GFR (Non-Af Amer) BUN/Creatinine Ratio Glucose Fasting Glucose 99 Calcium Total Bilirubin AST ALT Alkaline Phosphatase Total Protein Albumin Globulin Albumin/Globulin Ratio Triglycerides 306 H Cholesterol 195 LDL Cholesterol, Calc 96 VLDL Cholesterol, Calc 61 H HDL Cholesterol 38 Cholesterol/HDL Ratio 5.1 H TSH HCG, Qual Urine Color Urine Appearance Urine pH Ur Specific [place] Urine Protein Urine Glucose (UA) Urine Ketones Urine Blood Urine Nitrite Urine Bilirubin Urine Urobilinogen Ur Leukocyte Esterase Salicylates Urine Opiates Screen Ur Methadone, Qual Acetaminophen Urine Barbiturates Ur Phencyclidine (PCP) U Amphetamin/Meth Scrn MDMA (Ecstasy) Screen U Benzodiazepines Scrn Ur Cocaine Metabolite U Marijuana (THC) Screen Ethyl Alcohol mg/dL SARS-CoV-2, RNA, NAAT Hospital Course (1) Suicidal ideation: (2) Major depressive disorder, recurrent episode with anxious distress: (3) Post traumatic stress disorder (PTSD): (4) Self-harming behavior: Plan 10/18/22: Engaged with safety planning, had family meeting, attended some groups. Desires discharge. 10/17/2022: [facility] health unit) on q15 min checks (behavioral with suicide precautions) for safety. The patient will participate in group, recreational, and milieu therapies and will be offered additional individual and family sessions as clinically appropriate. -Continue abilify 10mg qd and Celexa 40mg qd -fasting lipid panel and glucose tomorrow morning -Signed 72 hour notice. Mental Health & Subst Abuse Tx Psychiatrist Name of Psychiatrist: None Therapist Name of Therapist: Dean Christianson - Jaye Therapist's Time of Therapist Appointment: 10:00 AM Therapy Appointment Comment: Virtual - please check email for link Post Discharge Appointments Primary Care Physician Name Of Family Doctor/PCP: SILVIA Bustillo - Dr. Rizwan Méndez Primary Care Time of Appointment with PCP: 9:20 AM Provider Appointment Comment: [id number] [place] [address] Contact Information Discharge Discharge Address: [address] [place] [id number] Discharge Plan Discharge Items Patient Disposition: Home - Self-Care Reason For Visit: MDD Discharge Diagnosis: Major Depressive Disorder Activity: Resume your previous activity Non-emergency contact: Primary Care Provider and Therapist Call non-emergency contact if: you have any medication questions and your symptoms worsen Follow-up/Referrals: Rizwan Méndez, DO [Primary Care Provider] - Diet: Regular Addtl Attending Provider Instructions: Optional mobile apps we discussed: -Suicide Safety Plan -Virtual Hope Box SPECIAL CARE INSTRUCTIONS: 1. Follow through with your scheduled aftercare appointments. If unable to keep an appointment, please call to reschedule. 2. Take your medication only as prescribed. Medication should not be changed or stopped without the approval of your doctor. In the event of worsening symptoms or concerns about side effects, contact your doctor immediately. 3. Utilize new healthy coping skills, anger management skills, and stress management skills learned during your hospitalization. Journal feelings and process them with a support person. Identify stressors or situations that may result in relapse, deterioration or inappropriate behaviors and develop a plan to deal with those issues. 4. If your coping skills are ineffective and you are in crisis, contact your outpatient providers for direction. If unable to reach your providers, please call the [facility] CRISIS LINE AT , go to the [facility] walk-in center at [address] [place] [address], [address], [place], or go to the closest Emergency Room. 5. Avoid alcohol and un-prescribed drugs. 6. You have been provided with the Mental Health Advance Directives Pamphlet for your review. 7. Your condition is stable for discharge to outpatient level of care, but recovery is an ongoing process. Ifthoughts to harm yourself or others return, follow the safety plan developed during your stay. Planning for a safe return home includes securing weapons. Our treatment team recommends weaponsbe removed from the home until your outpatient provider reassesses your progress. In rare cases where the items themselvescannot be removed, guns and ammunitionshould be secured separatelyand keys stored by a reliable personoutside of the home. If you were admitted on an involuntary commitment, the police or other legal authorities may be involved in this process. AFTERCARE APPOINTMENTS: * Please call your insurance company prior to your scheduled appointment to confirm your aftercare providers are covered. Take your insurance information to your appointments. WHO TO CALL AND WHEN: Medical Emergencies: For questions or emergencies related to your hospital stay, please contact the Inpatient Behavioral Health Unit at [phone]. A parish visitor is on-call 25/04 for the Behavioral Health Unit for emergencies At any time you feel your situation is an emergency, you may also call 911 immediately. Pending Studies at Discharge: No Stand-Alone Forms: My [facility] Medications and DC Order Prescriptions: New hydroxyzine HCl 25 mg Tablet 25 mg PO DAILY PRN (Reason: anxiety/insomnia) 30 Days Qty: 30 0RF aripiprazole [Abilify] 10 mg Tablet 10 mg PO DAILY 30 Days Qty: 30 0RF Continued Zyrtec 10 mg capsule 10 mg PO DAILY PRN (Reason: allergy symptoms) Qty: 30 0RF Xulane 150-35 mcg/24 hr patch weekly 1 patch transdermal Q7D Qty: 3 3RF Rx Instructions: apply once weekly for 3 weeks of a 4-week cycle medroxyprogesterone [Provera] 10 mg tablet 10 mg PO DAILY Qty: 10 0RF Rx Instructions: Start Oct 14 if test is negative. citalopram 40 mg tablet 40 mg PO DAILY Qty: 30 1RF Discontinued aripiprazole [Abilify] 10 mg tablet 10 mg PO DAILY Qty: 90 1RF Discharge Orders: Discharge Order (Routine); Ordered 10/18/22 Ordered By: Kayla Graham Admission Data Admit Date/Time: 10/16/22 18:01 Attending Provider: Kayla Graham Admit Provider: Kayla Graham Primary Care Provider: Rizwan Méndez Other Interventions: Discharge Summary Assessment (RN) Last Done: 10/18/22 14:41 PSY Interdisciplinary Discharge Planning Last Done: 10/18/22 15:21 Coding Level of Care Code 67092 D/C day mgmt > 30 min Diagnoses Suicidal ideation R45.851 Major depressive disorder, recurrent episode with anxious distress F33.9 Post traumatic stress disorder (PTSD) F43.10 Self-harming behavior Time Spent (min) 50
[2022-10-20 11:48] LABS: Marijuana Quant, GCMS Urine 186 ng/mL (<5)
== END 2022-10-18 15:13 | disposition home or self-care (01) | DRG 880 ==
LOC: ED 15:09 → 3S 17:51